=== PATIENT | female | born 1965 | race Caucasian/White ===

== ENCOUNTER 2019-10-29 11:38 | Outpatient (CLI) | payer MEDICARE, MEDICAID, SELFPAY | END 2019-10-29 11:39 | disposition home or self-care (01) | LOC: ANHAUDIO 11:41 | DX: H90.3 Sensorineural hearing loss, bilateral (principal) | CPT/HCPCS: 92557; 92567 ==

== ENCOUNTER 2020-01-27 12:00 | Outpatient (RCR) | payer MEDICAID, SELFPAY | END 2020-01-27 23:59 | disposition home or self-care (01) | LOC: ANHAUDIO 12:00 | DX: Z46.1 Encounter for fitting and adjustment of hearing aid (principal) | CPT/HCPCS: 99199 ==

== ENCOUNTER 2020-03-04 08:44 | Outpatient (RCR) | payer MEDICAID, SELFPAY | END 2020-06-02 23:59 | disposition home or self-care (01) | LOC: ANHBWCAUD 08:44 | DX: Z46.1 Encounter for fitting and adjustment of hearing aid (principal) | CPT/HCPCS: V5160; V5260 ==

== ENCOUNTER 2020-08-24 11:30 | Outpatient (RCR) | payer MEDICARE, MEDICAID, SELFPAY | END 2020-09-15 23:59 | disposition home or self-care (01) | LOC: ANHBWCAUD 11:30 | DX: Z46.1 Encounter for fitting and adjustment of hearing aid (principal) | CPT/HCPCS: 99199 ==

== ENCOUNTER 2021-01-27 12:59 | Outpatient (CLI) | payer MEDICARE, MEDICAID, SELFPAY | END 2021-01-27 13:00 | disposition home or self-care (01) | LOC: ANHBWCAUD 12:59 | DX: H91.90 Unspecified hearing loss, unspecified ear (principal) | CPT/HCPCS: 92555; 92567 ==

== ENCOUNTER 2021-10-18 15:30 | Outpatient (RCR) | payer MEDICARE, MEDICAID, SELFPAY | END 2021-12-19 23:59 | disposition home or self-care (01) | LOC: ANHBWCAUD 15:30 | DX: Z46.1 Encounter for fitting and adjustment of hearing aid (principal) | CPT/HCPCS: 99199 ==